=== PATIENT | female | born 1980 | race Caucasian/White ===

== ENCOUNTER 2016-12-22 07:47 | Emergency (ER) | payer SELFPAY ==
--- NOTE | 2016-12-22 08:45 | ER Document Report ---
ED General - General Mode of Arrival: Ambulatory Information source: Patient TRAVEL OUTSIDE OF THE [place] IN LAST 30 DAYS: No - HPI Associated symptoms: Other - see above <MCKENZIE MARTI - Last Filed: 12/22/16 10:20> <USHA HALL - Last Filed: 12/23/16 15:48> - General Chief Complaint: Back Pain Stated Complaint: BACK PAIN/HEADACHE Time Seen by Provider: 12/22/16 08:30 Notes: Patient is a 36 year old female who presents to the ED with complaints of right side back pain for the past few days and a headache that has been persistent the past 14-15 hours. Patient states that she is currently 28 weeks with no care and she is concerned for pre eclampsia. She has taken 1000 mg of Tylenol 2-3 times per day for her back pain, it resolves her back pain but it does come back. She states the medication has not resolved or improved her headache. Patient states her headache feels like pressure and states it could be from her sinuses and congestion as she has allergies and was doing home cleaning last week. She denies any SOB. Patient states she has been having some roseline boyd contractions. She denies any vaginal discharge or bleeding and the baby has been active. She also has had some dysuria. This is patients 4th . She has a 14 year old at home whom she had severe pre eclampsia with, a 4 year old at home and states her 3rd was taken at 28 weeks due to placenta abruption at that child at 1 month old. She states she has not had any pre care for this due to a lapse in her insurance. She does not know her blood type but she is PH negative and has had to have Rhogam shots in the past with her pregnancies. (MCKENZIE MARTI) - Related Data Allergies/Adverse Reactions: No Known Allergies Allergy (Verified 12/22/16 11:49) Past Medical History - General Information source: Patient - Social History Smoking Status: Unknown if Ever Smoked Family History: Reviewed & Not Pertinent Patient has suicidal ideation: No Patient has homicidal ideation: No Renal/ Medical History: Denies: Hx Peritoneal Dialysis <MCKENZIE MARTI - Last Filed: 12/22/16 10:20> Review of Systems - Review of Systems Constitutional: No symptoms reported EENT: No symptoms reported Cardiovascular: No symptoms reported Respiratory: No symptoms reported Gastrointestinal: No symptoms reported Genitourinary: See HPI, Dysuria Female Genitourinary: See HPI, - approximately 28 weeks with no care, baby is active, Other - . denies: Vaginal discharge, Vaginal bleeding Musculoskeletal: See HPI, Back pain Skin: No symptoms reported Hematologic/Lymphatic: No symptoms reported Neurological/Psychological: See HPI, Headaches <MCKENZIE MARTI - Last Filed: 12/22/16 10:20> Physical Exam - General General appearance: Appears well, Alert In distress: None - HEENT Head: Normocephalic, Atraumatic Eyes: Normal Extraocular movements intact: Yes Pupils: PERRL - Respiratory Respiratory status: No respiratory distress Breath sounds: Normal - Cardiovascular Rhythm: Regular Heart sounds: Normal auscultation Murmur: No - Abdominal Inspection: Gravid female Tenderness: Nontender - Back Back: Normal - Extremities General upper extremity: Normal inspection, Normal ROM, Normal strength General lower extremity: Normal inspection, Normal ROM, Normal strength. No: Edema - Neurological Neuro grossly intact: Yes Cognition: Normal Orientation: AAOx4 Pioneer Coma Scale Eye Opening: Spontaneous Wolfgang Coma Scale Verbal: Oriented Pioneer Coma Scale Motor: Obeys Commands Pioneer Coma Scale Total: 15 Speech: Normal Motor strength normal: LUE, RUE, LLE, RLE Sensory: Normal - Psychological Associated symptoms: Normal affect, Normal mood - Skin Skin Temperature: Warm Skin Moisture: Dry Skin Color: Normal <MCKENZIE MARTI - Last Filed: 12/22/16 10:20> - Vital signs Vitals: Temp Pulse Resp BP Pulse Ox 98.4 F 102 H 12 149/105 H 100 12/22/16 07:55 12/22/16 07:55 12/22/16 07:55 12/22/16 07:55 12/22/16 07:55 Course - Laboratory Result Diagrams: 12/22/16 09:08 12/22/16 09:08 - Consults Dr. Castro Time consulted: 10:21 Consulted provider: other <MCKENZIE MARTI - Last Filed: 12/22/16 10:20> - Laboratory Result Diagrams: 12/22/16 09:08 12/22/16 09:08 <USHA HALL - Last Filed: 12/23/16 15:48> - Re-evaluation Re-evalutation: 12/22/16 10:29 Very pleasant 36-year-old presents with mild diffuse headache, right middle back pain. No CVA tenderness. Patient appears nontoxic. She does have a history of prior preeclampsia. Her initial blood pressure was somewhat elevated. She has remained comfortable in the emergency department. A second blood pressure reading showed similar elevation. Her urinalysis shows mild signs of urinary tract infection but also shows the presence of protein. I have called and spoken with Dr. Castro regarding concerns for preeclampsia. He will see the patient in labor and delivery. I discussed this with the patient and she is very pleased and appreciative of the care she has received. (USHA HALL) - Vital Signs Vital signs: Temp Pulse Resp BP Pulse Ox 99.0 F 82 20 135/92 H 100 12/22/16 10:52 12/22/16 10:52 12/22/16 10:52 12/22/16 10:52 12/22/16 10:52 - Laboratory Laboratory results interpreted by me: 12/22/16 12/22/16 12/22/16 09:08 09:08 09:19 WBC 10.7 H RBC 3.54 L Hgb 11.6 L Hct 33.5 L Seg Neutrophils % 80.1 H Lymphocytes % 12.7 L Absolute Neutrophils 8.5 H Chloride 108 H Urine Protein 30 H Urine Blood SMALL H Urine Nitrite POSITIVE H Ur Leukocyte Esterase MODERATE H - Consults Dr. Castro Reason for consultation: 12/22/16 10:21 Discussed patient. He will assess and monitor the patient on the OB floor. ( MCKENZIE MARTI) Discharge <MCKENZIE MARTI - Last Filed: 12/22/16 10:20> - Discharge Unit Admitted: Labor and Delivery <USHA HALL - Last Filed: 12/23/16 15:48> - Discharge Clinical Impression: Hypertension Back pain affecting Qualifiers: Trimester: second trimester Qualified Code(s): O26.892 - Other specified related conditions, second trimester; M54.9 - Dorsalgia, unspecified Preeclampsia Qualifiers: Trimester: second trimester Qualified Code(s): O14.92 - Unspecified pre- eclampsia, second trimester Condition: Stable Disposition: LABOR CHECK Scribe Documentation - Scribe Written by Scribe:: arpit Lackey, 12/22/2016, [id number] acting as scribe for :: Emily <MCKENZIE MARTI - Last Filed: 12/22/16 10:20>
[2016-12-22 09:23] LABS: ABSOLUTE EOSINOPHILS # (AUTO) 0.1 10^3/uL (0.0-0.6); ABSOLUTE LYMPHOCYTES (AUTO) 1.4 10^3/uL (0.5-4.7); ABSOLUTE MONOCYTES (AUTO) 0.7 10^3/uL (0.1-1.4); ABSOLUTE NEUT (AUTO) 8.5 10^3/uL (1.7-8.2); BASOPHILS % (AUTO) 0.3 % (0-2); EOSINOPHILS % (AUTO) 0.5 % (0-6); HEMATOCRIT 33.5 % (36.0-47.0); HEMOGLOBIN 11.6 g/dL (12.0-15.5); HGB HCT DIFFERENCE 1.3; LYMPHOCYTES % (AUTO) 12.7 % (13-45); MEAN CORPUSCULAR HEMOGLOBIN 32.8 pg (27.0-33.4); MEAN CORPUSCULAR HGB CONC 34.7 g/dL (32.0-36.0); MEAN CORPUSCULAR VOLUME 95 fl (80-97); MONOCYTES % (AUTO) 6.4 % (3-13); RED BLOOD COUNT 3.54 10^6/uL (3.72-5.28); RED CELL DISTRIBUTION WIDTH 12.8 % (11.5-14.0); SEGMENTED NEUTROPHILS % (AUTO) 80.1 % (42-78); WHITE BLOOD COUNT 10.7 10^3/uL (4.0-10.5)
[2016-12-22 09:40] LABS: APPEARANCE,URINE CLOUDY; BILIRUBIN,URINE NEGATIVE (NEGATIVE); GLUCOSE, URINE NEGATIVE (NEGATIVE); KETONES,URINE NEGATIVE (NEGATIVE); LEUKOCYTE ESTERASE,URINE MODERATE (NEGATIVE); NITRITE,URINE POSITIVE (NEGATIVE); PROTEIN,URINE 30 mg/dL (NEGATIVE); URINE SPECIFIC GRAVITY 1.008; UROBILINOGEN,URINE NEGATIVE mg/dL (<2.0)
[2016-12-22 09:46] LABS: ALANINE AMINOTRANSFERASE 20 U/L (9-52); ALBUMIN 3.7 g/dL (3.5-5.0); ALKALINE PHOSPHATASE 102 U/L (38-126); ANION GAP 8 (5-19); ASPARTATE AMINO TRANSFERASE 18 U/L (14-36); BILIRUBIN,DIRECT 0.4 mg/dL (0.0-0.4); BILIRUBIN,TOTAL 0.4 mg/dL (0.2-1.3); BLOOD UREA NITROGEN 8 mg/dL (7-20); CALCIUM 9.2 mg/dL (8.4-10.2); CARBON DIOXIDE 22 mmol/L (22-30); CHLORIDE 108 mmol/L (98-107); GLUCOSE 82 mg/dL (75-110); POTASSIUM 3.9 mmol/L (3.6-5.0); SODIUM 138.4 mmol/L (137-145); TOTAL PROTEIN 6.5 g/dL (6.3-8.2)
[2016-12-22] MEDS ORDERED: ACETAMINOPHEN 325 MG TABLET PO ONE (10:57)
[2016-12-22 11:00] VITALS: BP 135/92
== END 2016-12-22 11:19 | disposition admitted as inpatient to this hospital (09) ==
LOC: ER 07:47
DX: O26.892 Other specified pregnancy related conditions, second trimester (principal); O14.92 Unspecified pre-eclampsia, second trimester; I10 Essential (primary) hypertension; M54.9 Dorsalgia, unspecified; Z3A.28 28 weeks gestation of pregnancy; R30.0 Dysuria
CPT/HCPCS: 36415; 80053; 81001; 85025; 99283

== ENCOUNTER 2016-12-22 10:56 | Outpatient (CLI) | payer SELFPAY ==
--- NOTE | 2016-12-22 13:20 | RADIOLOGY REPORT (SQ) ---
EXAM DESCRIPTION: U/S OB LIMITED COMPLETED DATE/TIME: 12/22/2016 12:26 pm REASON FOR STUDY: no [facility] u/s for cervical length, size, dates COMPARISON: None. TECHNIQUE: Limited transabdominal grayscale ultrasound for evaluation of specific requested obstetri earl parameters. LIMITATIONS: None. FINDINGS: CERVICAL LENGTH: 3.1 cm Closed. LVP: 7.2 cm. FHR: 153 beats per minute. PRESENTATION: Cephalic. OTHER: survey shows no gross abnormality. measurements demonstrate a gestational 23 week s 6 days with estimated date of delivery of 04/14/2017. Estimated body weight is 601 g +/-80 9 g. the placenta is posterior grade 1. IMPRESSION: There is a live intrauterine gestation of 23 weeks 6 days with an estimated date of deli very of 04/14/2017. Trimester of : Second trimester - 13 weeks 1 day to 27 weeks 6 days. TECHNICAL DOCUMENTATION: JOB ID: [id number] [employer]- All Rights Reserved
== END 2016-12-22 13:59 | disposition home or self-care (01) ==
LOC: LC 10:56
PROVIDERS: ATTEND Obstetrics & Gynecology
PROC: 4A1HXCZ Monitoring of Products of Conception, Cardiac Rate, External Approach (ICD-10-PCS; principal; 2016-12-22)
DX: O47.02 False labor before 37 completed weeks of gestation, second trimester (principal); O09.32 Supervision of pregnancy with insufficient antenatal care, second trimester; Z3A.23 23 weeks gestation of pregnancy
CPT/HCPCS: 76815

== ENCOUNTER → 2017-01-12 | Outpatient (CLI) | payer SELFPAY ==
[2017-01-12 12:53] LABS: ALANINE AMINOTRANSFERASE 18 U/L (9-52); ALBUMIN 3.2 g/dL (3.5-5.0); ALKALINE PHOSPHATASE 70 U/L (38-126); ANION GAP 9 (5-19); ASPARTATE AMINO TRANSFERASE 13 U/L (14-36); BILIRUBIN,DIRECT 0.3 mg/dL (0.0-0.4); BILIRUBIN,TOTAL 0.4 mg/dL (0.2-1.3); BLOOD UREA NITROGEN 6 mg/dL (7-20); CALCIUM 8.6 mg/dL (8.4-10.2); CARBON DIOXIDE 21 mmol/L (22-30); CHLORIDE 108 mmol/L (98-107); CREATININE RESULT 0.61 mg/dL (0.52-1.25); GLUCOSE 73 mg/dL (75-110); LDH 304 U/L (313-618); POTASSIUM 4.2 mmol/L (3.6-5.0); SODIUM 137.9 mmol/L (137-145); TOTAL PROTEIN 5.9 g/dL (6.3-8.2); URIC ACID 4.8 mg/dL (2.5-7.0)
[2017-01-13 19:00] LABS: URINE PROTEIN 21.4 mg/dL (<12)
== END ==
LOC: OCH 11:12
PROVIDERS: ATTEND Nurse Practitioner Women's Health
DX: Z34.83 Encounter for supervision of other normal pregnancy, third trimester (principal)
CPT/HCPCS: 36415; 80053; 83615; 84156; 84550

== ENCOUNTER → 2017-01-23 | Outpatient (CLI) | payer SELFPAY ==
--- NOTE | 2017-01-23 15:34 | RADIOLOGY REPORT (SQ) ---
EXAM DESCRIPTION: U/S OB 14+ TRNABD 1GES W/O DOP COMPLETED DATE/TIME: 01/23/2017 1:38 pm REASON FOR STUDY: ENCOUNTER FOR SUPERVISION OF OTHER NORMAL , 2ND TRIMESTER (Z34.82) Z34.82 ENCOUNTER FOR SUPRVSN OF NORMAL , SECOND TRI COMPARISON: 12/22/2016 TECHNIQUE: Static and Dynamic grayscale imaging performed of gravid uterus using transabdominal appr oach. Additional selected color Doppler and spectral images recorded. All stored on PACS. LIMITATIONS: None. FINDINGS: EGA: 29 weeks 0 days. JOSE: 04/10/2017. EFW: 1,315 +/- 195 grams PERCENTILE: 55 GODWIN: 19.4 cm PLACENTA: Posterior PRESENTATION: Cephalic. ANATOMY: HEART RATE: 147 beats per minute. FOUR CHAMBER HEART: Visualized. THREE VESSEL CORD: Yes. CORD INSERTION: Visualized. KIDNEYS AND BLADDER: Visualized. Appear normal. STOMACH: Visualized. Appears normal. SPINE: Normal as visualized. BRAIN AND LATERAL VENTRICLES: Visualized. Appear normal. OTHER: No other significant finding. MATERNAL ADNEXA: Maternal ovaries not visualized. CERVICAL LENGTH: 3.6 cm Closed. OTHER: No other significant finding. CERVICAL LENGTH: 3.1 cm Closed. GODWIN: Normal. FHR: 153 beats per minute. PRESENTATION: Cephalic. OTHER: Estimate gestational age by today's ultrasound is 23 weeks 6 days. Estimated weight is 1315 g +/ -195 g which is at the 55 percentile. IMPRESSION: LIVING INTRAUTERINE . ESTIMATED GESTATIONAL AGE 29 WEEKS 0 DAYS NO VISUALIZED ANOMALIES. Trimester of : Third trimester - 28 weeks to delivery. TECHNICAL DOCUMENTATION: JOB ID: [id number] [employer]- All Rights Reserved
== END ==
LOC: RAD 12:45
PROVIDERS: ATTEND Nurse Practitioner Women's Health
DX: Z34.82 Encounter for supervision of other normal pregnancy, second trimester (principal)
CPT/HCPCS: 76805

== ENCOUNTER 2017-02-13 10:20 | Outpatient (CLI) | payer MEDICAID ==
[2017-02-13 11:08] LABS: APPEARANCE,URINE SLIGHTLY-CLOUDY; BILIRUBIN,URINE NEGATIVE (NEGATIVE); GLUCOSE, URINE NEGATIVE (NEGATIVE); KETONES,URINE NEGATIVE (NEGATIVE); LEUKOCYTE ESTERASE,URINE LARGE (NEGATIVE); NITRITE,URINE POSITIVE (NEGATIVE); PROTEIN,URINE NEGATIVE (NEGATIVE); URINE SPECIFIC GRAVITY 1.006; UROBILINOGEN,URINE NEGATIVE mg/dL (<2.0)
[2017-02-13 11:18] LABS: HEMATOCRIT 31.4 % (36.0-47.0); HEMOGLOBIN 11.1 g/dL (12.0-15.5); HGB HCT DIFFERENCE 1.9; MEAN CORPUSCULAR HEMOGLOBIN 32.9 pg (27.0-33.4); MEAN CORPUSCULAR HGB CONC 35.3 g/dL (32.0-36.0); MEAN CORPUSCULAR VOLUME 93 fl (80-97); RED BLOOD COUNT 3.37 10^6/uL (3.72-5.28); WHITE BLOOD COUNT 11.5 10^3/uL (4.0-10.5)
[2017-02-13 11:26] LABS: URINE BARBITURATES SCREEN NEGATIVE; URINE METHADONE SCREEN NEGATIVE; URINE OPIATES LOW NEGATIVE; URINE PHENCYCLIDINE SCREEN NEGATIVE
[2017-02-13 11:37] LABS: ALANINE AMINOTRANSFERASE 23 U/L (9-52); ALBUMIN 3.7 g/dL (3.5-5.0); ALKALINE PHOSPHATASE 94 U/L (38-126); ANION GAP 10 (5-19); ASPARTATE AMINO TRANSFERASE 16 U/L (14-36); BILIRUBIN,DIRECT 0.3 mg/dL (0.0-0.4); BILIRUBIN,TOTAL 0.4 mg/dL (0.2-1.3); BLOOD UREA NITROGEN 7 mg/dL (7-20); CALCIUM 8.7 mg/dL (8.4-10.2); CARBON DIOXIDE 23 mmol/L (22-30); CHLORIDE 106 mmol/L (98-107); CREATININE RESULT 0.66 mg/dL (0.52-1.25); GLUCOSE 77 mg/dL (75-110); LDH 374 U/L (313-618); POTASSIUM 3.9 mmol/L (3.6-5.0); SODIUM 139.2 mmol/L (137-145); TOTAL PROTEIN 6.5 g/dL (6.3-8.2); URIC ACID 5.1 mg/dL (2.5-7.0)
== END 2017-02-13 11:56 | disposition home or self-care (01) ==
LOC: LC 10:20
PROVIDERS: ATTEND Obstetrics & Gynecology
DX: O16.9 Unspecified maternal hypertension, unspecified trimester (principal); Z3A.00 Weeks of gestation of pregnancy not specified
CPT/HCPCS: 36415; 80053; 80307; 81001; 83615; 84550; 85027

== ENCOUNTER 2017-03-01 10:31 | Outpatient (CLI) | payer MEDICAID | END 2017-03-01 11:20 | disposition home or self-care (01) | LOC: LC 10:31 | PROVIDERS: ATTEND Obstetrics & Gynecology | PROC: 4A1HXCZ Monitoring of Products of Conception, Cardiac Rate, External Approach (ICD-10-PCS; principal; 2017-03-01) | DX: Z34.92 Encounter for supervision of normal pregnancy, unspecified, second trimester (principal); Z3A.33 33 weeks gestation of pregnancy | CPT/HCPCS: 59025 ==

== ENCOUNTER → 2017-03-06 | Outpatient (CLI) | payer MEDICAID ==
[2017-03-06 12:55] LABS: HEMATOCRIT 29.6 % (36.0-47.0); HEMOGLOBIN 10.6 g/dL (12.0-15.5); HGB HCT DIFFERENCE 2.2; MEAN CORPUSCULAR HGB CONC 35.6 g/dL (32.0-36.0); MEAN CORPUSCULAR VOLUME 93 fl (80-97); RED CELL DISTRIBUTION WIDTH 12.8 % (11.5-14.0); WHITE BLOOD COUNT 10.8 10^3/uL (4.0-10.5)
[2017-03-06 13:17] LABS: ASPARTATE AMINO TRANSFERASE 17 U/L (14-36); CREATININE RESULT 0.68 mg/dL (0.52-1.25); LDH 343 U/L (313-618); URIC ACID 5.6 mg/dL (2.5-7.0)
== END ==
LOC: OD 12:02
PROVIDERS: ATTEND Obstetrics & Gynecology
DX: O11.3 Pre-existing hypertension with pre-eclampsia, third trimester (principal); Z3A.34 34 weeks gestation of pregnancy
CPT/HCPCS: 36415; 82565; 83615; 84450; 84550; 85027

== ENCOUNTER 2017-03-14 21:07 | Observation (INO) | payer MEDICAID ==
[2017-03-14 21:39] LABS: APPEARANCE,URINE CLEAR; BILIRUBIN,URINE NEGATIVE (NEGATIVE); GLUCOSE, URINE NEGATIVE (NEGATIVE); KETONES,URINE NEGATIVE (NEGATIVE); LEUKOCYTE ESTERASE,URINE TRACE (NEGATIVE); NITRITE,URINE NEGATIVE (NEGATIVE); PROTEIN,URINE NEGATIVE (NEGATIVE); URINE SPECIFIC GRAVITY 1.002; UROBILINOGEN,URINE NEGATIVE mg/dL (<2.0)
[2017-03-14] MEDS ORDERED: RINGERS SOLUTION,LACTATED 300 ML IV ONE (21:45)
[2017-03-14] MEDS ORDERED: RINGERS SOLUTION,LACTATED 1,000 ML IV PRN (21:45)
[2017-03-14 21:57] LABS: URINE BARBITURATES SCREEN NEGATIVE; URINE METHADONE SCREEN NEGATIVE; URINE OPIATES LOW NEGATIVE; URINE PHENCYCLIDINE SCREEN NEGATIVE
[2017-03-14] MEDS ORDERED: ACETAMINOPHEN 325 MG TABLET PO ONE (23:12)
[2017-03-14] MEDS ORDERED: ACETAMINOPHEN 325 MG TABLET ONE (23:13)
[2017-03-15] MEDS ORDERED: PROMETHAZINE HCL INJ 25 MG/1 ML VIAL IV ONE (00:41)
[2017-03-15] MEDS ORDERED: MAG HYDROX/AL HYDROX/SIMETH SUSP 30 ML UDCUP PO ONE (00:41)
[2017-03-15] MEDS ORDERED: NALBUPHINE HCL INJ 10 MG/1 ML AMPULE INJ ONE (00:41)
[2017-03-15 00:54] LABS: ABSOLUTE EOSINOPHILS # (AUTO) 0.1 10^3/uL (0.0-0.6); ABSOLUTE LYMPHOCYTES (AUTO) 2.2 10^3/uL (0.5-4.7); ABSOLUTE MONOCYTES (AUTO) 0.9 10^3/uL (0.1-1.4); ABSOLUTE NEUT (AUTO) 9.2 10^3/uL (1.7-8.2); BASOPHILS % (AUTO) 0.1 % (0-2); EOSINOPHILS % (AUTO) 0.5 % (0-6); HEMATOCRIT 28.7 % (36.0-47.0); HEMOGLOBIN 10.2 g/dL (12.0-15.5); HGB HCT DIFFERENCE 1.9; LYMPHOCYTES % (AUTO) 17.5 % (13-45); MEAN CORPUSCULAR HEMOGLOBIN 33.1 pg (27.0-33.4); MEAN CORPUSCULAR HGB CONC 35.4 g/dL (32.0-36.0); MEAN CORPUSCULAR VOLUME 93 fl (80-97); MONOCYTES % (AUTO) 7.2 % (3-13); RED BLOOD COUNT 3.07 10^6/uL (3.72-5.28); RED CELL DISTRIBUTION WIDTH 13.1 % (11.5-14.0); SEGMENTED NEUTROPHILS % (AUTO) 74.7 % (42-78); WHITE BLOOD COUNT 12.4 10^3/uL (4.0-10.5)
[2017-03-15] MEDS ORDERED: MAG HYDROX/AL HYDROX/SIMETH SUSP 30 ML UDCUP ONE (01:00)
[2017-03-15] MEDS ORDERED: PROMETHAZINE HCL INJ 25 MG/1 ML VIAL ONE (02:16)
[2017-03-15] MEDS ORDERED: NALBUPHINE HCL INJ 10 MG/1 ML AMPULE ONE (02:16)
--- NOTE | 2017-03-15 08:13 | DISCHARGE SUMMARY E ---
Discharge Summary NAME: VIANNEY MONROE : 1980 AGE: 36Y ADMITTED: 03/15/2017 DISCHARGED: 03/15/2017 DISCHARGE DIAGNOSIS: NOT IN LABOR. HISTORY: The patient presented with contractions during the evening and was observed overnight to ensure that she was not in labor since she had several previous C-sections. She is 6, para 3. This is the furtherest she has made in , now at 35-1/2 weeks. On exam, her cervix was 2.5 cm to 3 cm dilated, 50%, minus 2 station, with intact membranes. Through the night, after IV fluids, her contractions have now stopped. She is no longer in pain. She is ready to go home this morning. PLAN: Discharge home. Follow up in the office at her usual OB visit. She will need a if she does present in labor. DICTATING PHYSICIAN: CHANDAN ALEXANDER M.D. [id number] PHY#: [id number] ID: [id number] JOB#: [id number] ACCT: [id number] cc:CHANDAN ALEXANDER M.D. >
--- NOTE | 2017-03-15 09:56 | Non Stress Test Report ---
Non Stress Test Datetime Report Generated by CPN: 03/15/2017 09:56 DEMOGRAPHIC EGA NST: 35.5 EGA NST: 33.5 INDICATION Indication for Study: labor; Ordered by Provider Indication for Study: Ordered by Provider VITAL SIGNS Temperature - NST: 98.4 Pulse - NST: 74 RESP - NST: 16 NBPSYS NST: 128 NBPDIA NST: 84 MONITORING Monitor Explained: Monitor Explained; Test Explained; Patient Verbalized Understanding Monitor Explained: Monitor Explained; Test Explained; Patient Verbalized Understanding Time on Monitor: 03/15/2017 07:00 Time on Monitor: 03/01/2017 10:40 Time off Monitor: 03/15/2017 07:45 NST Duration: 45 NST INTERVENTIONS NST Interventions: PO Hydration; IV Fluids; Meal Given NST Interventions: PO Hydration; Vibroacoustic Stim Physician Notified NST: Dr Brunner Physician Notified NST: H Carl CNM BABY A: [id number] BABY A Movement : Present Movement : Present Contraction Frequency : irregular Contraction Frequency : rare FHR Baseline : 135 FHR Baseline : 135 Accelerations : 15X15 Accelerations : 15X15 Decelerations : None Decelerations : None Variability : Moderate 6-25bpm Variability : Moderate 6-25bpm NST Review: Meets Criteria for Reactive NST NST Review: Meets Criteria for Reactive NST NST Review and Verified By : Jamison White RN NST Results: Reactive NST Results: Reactive NST REPORT Report Trigger: Send Report
== END 2017-03-15 09:20 | disposition home or self-care (01) ==
LOC: LC 21:07 → LR 03-15 00:01
PROVIDERS: ADMIT Obstetrics & Gynecology; ATTEND Obstetrics & Gynecology
PROC: 4A0HXCZ Measurement of Products of Conception, Cardiac Rate, External Approach (ICD-10-PCS; principal; 2017-03-15)
DX: O60.03 Preterm labor without delivery, third trimester (principal); O34.219 Maternal care for unspecified type scar from previous cesarean delivery; Z3A.35 35 weeks gestation of pregnancy
CPT/HCPCS: 86900; 86901; 36415; 86870; 86850; 85025; 86592; 81001; 80307; 59025; G0378; J3490 ×2; J2300; J2550

== ENCOUNTER 2017-03-24 06:22 | Inpatient (IN) | payer MEDICAID ==
[2017-03-23 10:33] LABS: ABSOLUTE EOSINOPHILS # (AUTO) 0.1 10^3/uL (0.0-0.6); ABSOLUTE LYMPHOCYTES (AUTO) 1.6 10^3/uL (0.5-4.7); ABSOLUTE NEUT (AUTO) 9.2 10^3/uL (1.7-8.2); BASOPHILS % (AUTO) 0.2 % (0-2); EOSINOPHILS % (AUTO) 0.6 % (0-6); HEMATOCRIT 32.2 % (36.0-47.0); HEMOGLOBIN 10.9 g/dL (12.0-15.5); HGB HCT DIFFERENCE 0.5; LYMPHOCYTES % (AUTO) 13.1 % (13-45); MEAN CORPUSCULAR HGB CONC 33.9 g/dL (32.0-36.0); MEAN CORPUSCULAR VOLUME 94 fl (80-97); MONOCYTES % (AUTO) 8.6 % (3-13); RED BLOOD COUNT 3.41 10^6/uL (3.72-5.28); RED CELL DISTRIBUTION WIDTH 13.2 % (11.5-14.0); SEGMENTED NEUTROPHILS % (AUTO) 77.5 % (42-78); WHITE BLOOD COUNT 11.8 10^3/uL (4.0-10.5)
[2017-03-23 10:34] LABS: APPEARANCE,URINE SLIGHTLY-CLOUDY; BILIRUBIN,URINE NEGATIVE (NEGATIVE); GLUCOSE, URINE NEGATIVE (NEGATIVE); KETONES,URINE NEGATIVE (NEGATIVE); LEUKOCYTE ESTERASE,URINE LARGE (NEGATIVE); NITRITE,URINE NEGATIVE (NEGATIVE); PROTEIN,URINE NEGATIVE (NEGATIVE); URINE SPECIFIC GRAVITY 1.004; UROBILINOGEN,URINE NEGATIVE mg/dL (<2.0)
[2017-03-23 10:55] LABS: URINE BARBITURATES SCREEN NEGATIVE; URINE METHADONE SCREEN NEGATIVE; URINE OPIATES LOW NEGATIVE; URINE PHENCYCLIDINE SCREEN NEGATIVE
[~2017-03-24 06:22] MED LIST: AZITHROMYCIN 500 MG in DEXTROSE 5%-WATER 250 ML IV PRN; CEFAZOLIN 1 GM/D5W RTU 1 GM/50 ML RTUPB IV PRN; LACTATED RINGERS 1000 ML IV PRN; LIDOCAINE 0.5% INJ-PF (5 MG/ML) 50 ML SDV SUBCUT PRN; RINGERS SOLUTION,LACTATED 1,000 ML IV PRN
[2017-03-24] MEDS ORDERED: ACETAMINOPHEN 100 ML IV ONE (08:16)
[2017-03-24] MEDS ORDERED: MIDAZOLAM 2 MG/2 ML INJ ONE (08:16)
[2017-03-24] MEDS ORDERED: CITRIC ACID/SODIUM CITRATE ORAL SOLN 15 ML UDCUP ONE (08:16)
[2017-03-24] MEDS ORDERED: OXYTOCIN/NORMAL SALINE 20 UNIT/1,000 ML RTUINJ ONE (08:16)
[2017-03-24] MEDS ORDERED: FENTANYL CITRATE INJ/PF 100 MCG/2 ML AMPUL ONE (08:16)
[2017-03-24] MEDS ORDERED: ONDANSETRON HCL INJ/PF 4 MG/2 ML SDV ONE (08:17)
[2017-03-24] MEDS ORDERED: PHENYLEPHRINE HCL INJ/PF 10 MG/1 ML SDV ONE (08:17)
[2017-03-24] MEDS ORDERED: DIPHENHYDRAMINE HCL 50 MG/ML VIAL IV PRN (09:26)
[2017-03-24] MEDS ORDERED: PROMETHAZINE HCL INJ 25 MG/1 ML VIAL IV PRN (09:26)
[2017-03-24] MEDS ORDERED: FENTANYL CITRATE INJ/PF 100 MCG/2 ML AMPUL IV PRN ×3 (09:26)
[2017-03-24] MEDS ORDERED: MORPHINE SULFATE 10 MG/ML INJ IV PRN (09:26)
[2017-03-24] MEDS ORDERED: OXYTOCIN/NORMAL SALINE 20 UNIT/1,000 ML RTUINJ INJ PRN (10:07)
--- NOTE | 2017-03-24 10:28 | OPERATIVE REPORT E ---
Operative Report NAME: VIANNEY MONROE : 1980 AGE: 36Y DATE OF SURGERY: 03/24/2017 ROOM: 228 PREOPERATIVE DIAGNOSES: 1. Intrauterine at term with prior section. 2. Desire for sterilization. POSTOPERATIVE DIAGNOSES: 1. Intrauterine at term with prior section. 2. Desire for sterilization. PROCEDURE: Repeat low transverse section with delivery of a viable male, Apgars of 8 and 8. SURGEON: Holley ANDRADE M.D. ESTIMATED BLOOD LOSS: Less than 600 mL. TISSUE REMOVED: Placenta. ANESTHESIA: Spinal. PROCEDURE: The patient was placed in a supine position, rolled on her right side, and prepped and draped in a sterile fashion. Pfannenstiel incision was made through an existing Pfannenstiel eschar. The incision extended through subcutaneous tissue and fascia with sharp dissection. Fascia resected and sharply divided. The rectus muscle resected and sharply divided. Parietal peritoneum entered with sharp dissection. The uterus nicked in midline and extended bilaterally. The was then delivered through the uterine-abdominal incision. Nose and mouth were suctioned with bulb syringe. The cord was clamped. The was passed from the table. The placenta was manually extracted. The uterus was closed in 2 layers using #1 Vicryl, first with a running stitch, the second a Lembert stitch imbricating the first layer. The tubes were ligated using Filshie clips in with a good purchase of tissue being noted on both sides. The tubes were identified prior *------* the fimbria prior to and after banding. The fascia was then closed with 0 Vicryl and the skin was closed with subcuticular absorbable kalpana. She tolerated it well and was taken to the recovery room in good condition and the to the nursery in good condition. DICTATING PHYSICIAN: Holley ANDRADE M.D. [id number] PHY#: [id number] ID: [id number] JOB#: [id number] ACCT: [id number] cc:Holley ANDRADE M.D. >
[2017-03-24] MEDS ORDERED: ACETAMINOPHEN 325 MG TABLET PO PRN (10:30)
[2017-03-24] MEDS ORDERED: SIMETHICONE 80 MG TAB.CHEW PO PRN (10:30)
[2017-03-24] MEDS ORDERED: DIPH/PERTUSS(ACELL)/TETANUS VAC/PF 0.5 ML SYR (>=10YO) IM PRN (10:30)
[2017-03-24] MEDS ORDERED: MEASLES,MUMPS&RUBELLA VACC/PF 0.5 ML VIAL SUBCUT PRN (10:30)
[2017-03-24] MEDS ORDERED: OXYCODONE-ACETAMINOPHEN 5-325 MG TABLET PO PRN (10:30)
[2017-03-24] MEDS ORDERED: PROMETHAZINE HCL INJ 25 MG/1 ML VIAL IM PRN (10:30)
[2017-03-24] MEDS: FENTANYL CITRATE INJ/PF 100 MCG/2 ML AMPUL ONE ×2 (11:06→11:08)
[2017-03-24] MEDS ORDERED: KETOROLAC TROMETHAMINE INJ/PF 30 MG/1 ML SDV ONE (11:06)
[2017-03-24] MEDS: HYDROMORPHONE HCL INJ/PF 2 MG/ML AMPULE IV PRN ×2 (12:12→17:23)
[2017-03-24] MEDS: KETOROLAC TROMETHAMINE INJ/PF 30 MG/1 ML SDV IV SCH ×2 (14:20→21:25)
[2017-03-24] MEDS: OXYCODONE-ACETAMINOPHEN 5-325 MG TABLET PO PRN ×2 (14:39→20:06)
[2017-03-24] MEDS ORDERED: LABETALOL HCL 200 MG TABLET PO ONE (15:00)
[2017-03-24] MEDS: ACETAMINOPHEN 100 ML IV SCH ×2 (15:10→21:40)
[2017-03-24] MEDS: DOCUSATE SODIUM 100 MG CAPSULE PO SCH (17:23)
[2017-03-24] MEDS ORDERED: ONDANSETRON HCL 8 MG TABLET PO PRN (18:33)
[2017-03-24] MEDS: LABETALOL HCL 200 MG TABLET PO SCH (21:31)
[2017-03-25] MEDS: OXYCODONE-ACETAMINOPHEN 5-325 MG TABLET PO PRN ×5 (00:18→18:34)
[2017-03-25] MEDS: ACETAMINOPHEN 100 ML IV SCH (05:54)
[2017-03-25] MEDS: KETOROLAC TROMETHAMINE INJ/PF 30 MG/1 ML SDV IV SCH ×2 (05:54→05:56)
[2017-03-25] MEDS: LABETALOL HCL 200 MG TABLET PO SCH ×2 (09:48→22:17)
[2017-03-25] MEDS: DOCUSATE SODIUM 100 MG CAPSULE PO SCH ×2 (09:48→18:35)
[2017-03-25] MEDS: PRENATAL VITAMIN W DHA CAPSULE PO SCH (09:49)
--- NOTE | 2017-03-25 10:33 | PDOC PROGRESS REPORT ---
Subjective-OB Subjective: Post Delivery Day: 36 year old. Denies any needs at this time s/p repeat c section with btl abdomen soft mildly tender no redness incision dry and intact denies flatus, no bowel movement increase fluid and ambulation pain currently managed reviewed poc with pt and spouse- learning verbalized anticipate d/c in AM Physical Exam (OB) Vital Signs: Temp Pulse Resp BP Pulse Ox 98.2 F 81 16 130/90 H 100 03/25/17 09:02 03/25/17 09:02 03/25/17 09:02 03/25/17 09:02 03/25/17 09:02 Intake & Output 03/24/17 03/25/17 03/26/17 06:59 06:59 06:59 Intake Total 3000 Output Total 2650 Balance 350 Weight 61 kg 61 kg - PIH/Pre-Eclampsia DTR's: 2 + Clonus: Negative Headache: Absent Epigastric Pain: No Visual Changes: No - Dressing Removed: No - medipore Incision: Dressing - Lochia Lochia Amount: Small 10-25 ml Lochia Color: Rubra/Red - Abdomen Description: Soft, Round Hernia Present: No Fundal Description: Firm, Midline Fundal Height: u/u - u/2 Objective-Diagnostic Laboratory: 03/23/17 09:25
[2017-03-25] MEDS: IBUPROFEN 800 MG TABLET PO SCH ×3 (12:10→23:22)
[2017-03-25 12:34] LABS: HEMATOCRIT 25.3 % (36.0-47.0); HGB HCT DIFFERENCE 1.1; MEAN CORPUSCULAR HEMOGLOBIN 32.9 pg (27.0-33.4); MEAN CORPUSCULAR HGB CONC 34.8 g/dL (32.0-36.0); MEAN CORPUSCULAR VOLUME 95 fl (80-97); RED BLOOD COUNT 2.67 10^6/uL (3.72-5.28); RED CELL DISTRIBUTION WIDTH 13.4 % (11.5-14.0)
[2017-03-25 12:41] LABS: HEMOGLOBIN 8.8 g/dL (12.0-15.5)
[2017-03-26] MEDS: OXYCODONE-ACETAMINOPHEN 5-325 MG TABLET PO PRN ×2 (00:16→05:50)
[2017-03-26] MEDS: IBUPROFEN 800 MG TABLET PO SCH (05:49)
--- NOTE | 2017-03-26 08:12 | PDOC DISCHARGE SUMMARY ---
General - Admit/Disc Date/PCP Admission Date/Primary Care Provider: 03/24/17 06:22 CHANDAN ALEXANDER MD Discharge Date: 03/26/17 - Discharge Diagnosis (3) Gestational hypertension Is this a current diagnosis for this admission?: Yes - Additional Information Resuscitation Status: Full Code Home Medications: Pnv No.103/Folic/Om3s/Fish Oil [ Gummies] 1 each PO DAILY 12/22/16 Bupropion HCl [Wellbutrin 75 mg Tablet] 1 tab PO DAILY 02/13/17 Labetalol HCl 300 mg PO BID 02/13/17 Ranitidine HCl [Acid Preflight Inspector] 75 mg PO BID 03/14/17 History of Present Illness History of Present Illness: VIANNEY MONROE is a 36 year old female admitted for repeat and btl Hospital Course Hospital Course: repeat and btl routine care Physical Exam - Physical Exam Vital Signs: Temp Pulse Resp BP Pulse Ox 98.4 F 72 16 127/76 H 99 03/26/17 03:50 03/26/17 03:50 03/26/17 03:50 03/26/17 03:50 03/26/17 03:50 Intake & Output 03/25/17 03/26/17 03/27/17 06:59 06:59 06:59 Intake Total 3000 540 Output Total 2650 Balance 350 540 Weight 61 kg - Obstetrical Exam Fundal Height: u/u - u/2 Tender: No Adhexa: normal Result Laboratory Results: 03/25/17 07:33 03/25/17 03/25/17 07:33 07:33 WBC 12.0 H RBC 2.67 L Hgb 8.8 L D Hct 25.3 L MCV 95 MCH 32.9 MCHC 34.8 RDW 13.4 Plt Count 262 Blood Type A NEGATIVE Plan Discharge Plan: d/c home stop meds for HTN f/u 1 week Time Spent: Less than 30 Minutes
[2017-03-26 09:03] VITALS: BP 136/93
[2017-03-26] MEDS: DOCUSATE SODIUM 100 MG CAPSULE PO SCH (09:19)
[2017-03-26] MEDS: LABETALOL HCL 200 MG TABLET PO SCH (09:19)
[2017-03-26] MEDS: PRENATAL VITAMIN W DHA CAPSULE PO SCH (09:19)
== END 2017-03-26 10:45 | disposition home or self-care (01) | DRG 766 ==
LOC: 2S 06:22
PROVIDERS: ADMIT Obstetrics & Gynecology Gynecology; ATTEND Obstetrics & Gynecology Gynecology
PROC: 0UL70CZ Occlusion of Bilateral Fallopian Tubes with Extraluminal Device, Open Approach (ICD-10-PCS; 2017-03-24)
PROC: 10D00Z1 Extraction of Products of Conception, Low, Open Approach (ICD-10-PCS; principal; 2017-03-24 09:15)
PROC: 3E0234Z Introduction of Serum, Toxoid and Vaccine into Muscle, Percutaneous Approach (ICD-10-PCS; 2017-03-25)
DX: O13.4 Gestational [pregnancy-induced] hypertension without significant proteinuria, complicating childbirth (principal); Z3A.37 37 weeks gestation of pregnancy; Z37.0 Single live birth; Z30.2 Encounter for sterilization; O26.893 Other specified pregnancy related conditions, third trimester; Z67.11 Type A blood, Rh negative; O34.212 Maternal care for vertical scar from previous cesarean delivery; Z79.899 Other long term (current) drug therapy
CPT/HCPCS: 1961; 36415; 59025; 80307; 81001; 85025; 85027; 85461; 86850; 86870; 86900; 86901; J0131; J0456; J0690; J1170; J1885; J2250; J2370; J2405; J2590; J2790; J3010; J3490; J7060; J7120; S0119

== ENCOUNTER 2017-03-26 21:45 | Emergency (ER) | payer MEDICAID ==
--- NOTE | 2017-03-26 22:01 | ER Document Report ---
ED General - General Stated Complaint: BLOOD PRESSURE PROBLEMS Time Seen by Provider: 03/26/17 21:49 Notes: Patient is a 36-year-old female 2 days from delivery who presents after "getting a chill". Patient states that she was lying in bed tonight and suddenly became very cold. She states that the symptoms have now resolved. She denies any additional symptoms. She does note that her blood pressure has been high but had been instructed to discontinue labetalol at time of discharge today after being diagnosed with hypertension during versus possible preeclampsia. She denies any chest pain, shortness of breath, headache, syncope, weakness or numbness. Nothing improves or worsens her symptoms. She denies any fever, vaginal discharge, bleeding or drainage from the wound TRAVEL OUTSIDE OF THE [place] IN LAST 30 DAYS: No - Related Data Allergies/Adverse Reactions: No Known Allergies Allergy (Verified 03/14/17 22:41) Past Medical History - General Information source: Patient - Social History Smoking Status: Never Smoker Frequency of alcohol use: None Drug Abuse: None Lives with: Spouse/Significant other Family History: Reviewed & Not Pertinent - Past Medical History Cardiac Medical History: Reports: Hx Heart Murmur Renal/ Medical History: Denies: Hx Peritoneal Dialysis Review of Systems - Review of Systems Notes: Constitutional: Negative for fever. HENT: Negative for sore throat. Eyes: Negative for visual changes. Cardiovascular: Negative for chest pain. Respiratory: Negative for shortness of breath. Gastrointestinal: Negative for abdominal pain, vomiting or diarrhea. Genitourinary: Negative for dysuria. Musculoskeletal: Negative for back pain. Skin: Negative for rash. Neurological: Negative for headaches, weakness or numbness. 10 point ROS negative except as marked above and in HPI. Physical Exam - Vital signs Vitals: Resp Pulse Ox 11 L 99 03/26/17 21:56 03/26/17 21:56 Interpretation: Hypertensive Notes: PHYSICAL EXAMINATION: GENERAL: Well-appearing, well-nourished and in no acute distress. HEAD: Atraumatic, normocephalic. EYES: Pupils equal round and reactive to light, extraocular movements intact, sclera anicteric, conjunctiva are normal. ENT: nares patent, oropharynx clear without exudates. Moist mucous membranes. NECK: Normal range of motion, supple without lymphadenopathy LUNGS: Breath sounds clear to auscultation bilaterally and equal. No wheezes rales or rhonchi. HEART: Regular rate and rhythm without murmurs ABDOMEN: Soft, uterus firm, mildly tender to palpation. EXTREMITIES: Normal range of motion, no pitting or edema. No cyanosis. NEUROLOGICAL: No focal neurological deficits. Moves all extremities spontaneously and on command. PSYCH: Normal mood, normal affect. SKIN: Warm, Dry, normal turgor, abdominal incision line well-healing, no drainage or bleeding Course - Re-evaluation Re-evalutation: 03/26/17 22:00 Patient presents feeling "chilled" but denies any additional symptoms after being discharged from the hospital 10 hours ago 2 days from a C- section. She did have preeclampsia during but apparently was informed by her OB today to discontinue labetalol and has not taken her nighttime dose. Her pressures in route were elevated 168 systolic and 110 diastolic. I have asked the patient to take a dose of labetalol 100 mg now and continue this medication at home. Will obtain basic laboratories to evaluate for help syndrome as well as ongoing preeclampsia but I have a very low clinical suspicion for any acute life-threatening pathology at this time based on patient's well appearance, vitals and history. Her incisional site is very well in appearance, no evidence of infection. She denies any foul- smelling lochia. She has no additional symptoms other than feeling chilled. She did not have any additional vital sign abnormalities other than hypertension at time of EMS transport. 03/26/17 22:41 Hemoglobin is improved from time of discharge. Labs are otherwise unremarkable without any evidence of HELLP syndrome. Protein is negative. Blood pressure improved after labetalol. Patient remains asymptomatic. At this time will discharge with return precautions and follow-up recommendations. Verbal discharge instructions given a the bedside and opportunity for questions given. Medication warnings reviewed. Patient is in agreement with this plan and has verbalized understanding of return precautions and the need for BED TEACHER follow- up in the next 24-72 hours. - Vital Signs Vital signs: Temp Pulse Resp BP Pulse Ox 98.7 F 13 147/106 H 99 03/26/17 22:30 03/26/17 22:30 12 22:30 03/26/17 22:30 - Laboratory Result Diagrams: 03/26/17 21:52 12/10/17 21:52 Laboratory results interpreted by me: 03/26/17 03/26/17 03/26/17 21:52 21:52 21:58 RBC 3.06 L Hgb 10.3 L Hct 29.0 L MCH 33.5 H Total Protein 6.0 L Albumin 3.3 L Urine Blood LARGE H Ur Leukocyte Esterase SMALL H Discharge - Discharge Clinical Impression: Chills Hypertension during Qualifiers: Hypertension in type: unspecified type Trimester: unspecified trimester Qualified Code(s): O16.9 - Unspecified maternal hypertension, unspecified trimester Condition: Good Disposition: HOME, SELF-CARE Additional Instructions: Blood work is normal today with the exception of mild anemia which is actually improved from your time of discharge. Please continue to take labetalol 100 mg twice daily until you are followed up again with your BED TEACHER. Return to the emergency department for any additional symptoms that are concerning to you including headache, vomiting, fever, or any other concerns you may have. Referrals: KEVAN ANDRADE MD [Primary Care Provider] - Follow up as needed
[2017-03-26 22:21] LABS: ABSOLUTE EOSINOPHILS # (AUTO) 0.1 10^3/uL (0.0-0.6); ABSOLUTE LYMPHOCYTES (AUTO) 1.9 10^3/uL (0.5-4.7); ABSOLUTE MONOCYTES (AUTO) 0.8 10^3/uL (0.1-1.4); ABSOLUTE NEUT (AUTO) 6.6 10^3/uL (1.7-8.2); BASOPHILS % (AUTO) 0.2 % (0-2); EOSINOPHILS % (AUTO) 1.3 % (0-6); HEMOGLOBIN 10.3 g/dL (12.0-15.5); HGB HCT DIFFERENCE 1.9; LYMPHOCYTES % (AUTO) 20.1 % (13-45); MEAN CORPUSCULAR HEMOGLOBIN 33.5 pg (27.0-33.4); MEAN CORPUSCULAR HGB CONC 35.4 g/dL (32.0-36.0); MEAN CORPUSCULAR VOLUME 95 fl (80-97); MONOCYTES % (AUTO) 8.1 % (3-13); RED BLOOD COUNT 3.06 10^6/uL (3.72-5.28); RED CELL DISTRIBUTION WIDTH 13.2 % (11.5-14.0); SEGMENTED NEUTROPHILS % (AUTO) 70.3 % (42-78); WHITE BLOOD COUNT 9.5 10^3/uL (4.0-10.5)
[2017-03-26 22:23] LABS: APPEARANCE,URINE CLEAR; BILIRUBIN,URINE NEGATIVE (NEGATIVE); GLUCOSE, URINE NEGATIVE (NEGATIVE); KETONES,URINE NEGATIVE (NEGATIVE); LEUKOCYTE ESTERASE,URINE SMALL (NEGATIVE); NITRITE,URINE NEGATIVE (NEGATIVE); PROTEIN,URINE NEGATIVE (NEGATIVE); URINE SPECIFIC GRAVITY 1.003; UROBILINOGEN,URINE NEGATIVE mg/dL (<2.0)
[2017-03-26 22:26] LABS: ALANINE AMINOTRANSFERASE 36 U/L (9-52); ALBUMIN 3.3 g/dL (3.5-5.0); ALKALINE PHOSPHATASE 113 U/L (38-126); ANION GAP 9 (5-19); ASPARTATE AMINO TRANSFERASE 27 U/L (14-36); BILIRUBIN,DIRECT 0.4 mg/dL (0.0-0.4); BILIRUBIN,TOTAL 0.4 mg/dL (0.2-1.3); BLOOD UREA NITROGEN 11 mg/dL (7-20); CALCIUM 9.2 mg/dL (8.4-10.2); CARBON DIOXIDE 27 mmol/L (22-30); CHLORIDE 104 mmol/L (98-107); CREATININE RESULT 0.86 mg/dL (0.52-1.25); GLUCOSE 90 mg/dL (75-110); POTASSIUM 4.2 mmol/L (3.6-5.0); SODIUM 140.1 mmol/L (137-145)
[2017-03-26 22:54] VITALS: BP 147/106
== END 2017-03-26 22:59 | disposition home or self-care (01) ==
LOC: ER 21:45
DX: O16.5 Unspecified maternal hypertension, complicating the puerperium (principal); O14.95 Unspecified pre-eclampsia, complicating the puerperium; R68.83 Chills (without fever); Z98.890 Other specified postprocedural states
CPT/HCPCS: 36415; 80053; 81001; 85025; 99284

== ENCOUNTER 2017-04-16 14:08 | Emergency (ER) | payer MEDICAID ==
--- NOTE | 2017-04-16 15:03 | ER Document Report ---
ED Medical Screen (RME) - General Chief Complaint: Post Surgical Pain Stated Complaint: PAIN,DRAINAGE AT INCISION SITE Time Seen by Provider: 04/16/17 14:58 Notes: 36-year-old female patient has on 03/24/2017. She had preeclampsia and is on labetalol 100 mg twice daily for high blood pressure. She reports her previous deliveries were like this and she was on blood pressure medicine for about 6 months after the deliveries. She was seen in the office 2 days ago, and her blood pressure was high but they elected not to increase her medication. By history it is higher today than it was then. She reports she noted yesterday some swelling to the wound area and this morning it was draining or oozing yellow liquid. I have greeted and performed a rapid initial assessment of this patient. A comprehensive ED assessment and evaluation of the patient, analysis of test results and completion of the medical decision making process will be conducted by additional ED providers. TRAVEL OUTSIDE OF THE [place] IN LAST 30 DAYS: No - Related Data Allergies/Adverse Reactions: No Known Allergies Allergy (Verified 04/16/17 14:09) Home Medications: Current Home Medications Labetalol HCl 1 tab PO BID 04/16/17 [History] Ranitidine HCl 1 tab PO DAILY 04/16/17 [History] Past Medical History - Past Medical History Cardiac Medical History: Reports: Hx Heart Murmur Renal/ Medical History: Denies: Hx Peritoneal Dialysis - Immunizations History of Influenza Vaccine for 01/2017 - 06/2017 Season: Refused Physical Exam - Vital signs Vitals: Temp Pulse Resp BP Pulse Ox 98.2 F 73 16 176/110 H 99 04/16/17 14:57 04/16/17 14:57 04/16/17 14:57 04/16/17 14:57 04/16/17 14:57 Course - Vital Signs Vital signs: Temp Pulse Resp BP Pulse Ox 98.2 F 75 16 171/106 H 99 04/16/17 14:57 04/16/17 14:58 04/16/17 14:58 04/16/17 14:58 04/16/17 14:58
[2017-04-16 15:55] LABS: ABSOLUTE BASOPHILS # (AUTO) 0.1 10^3/uL (0.0-0.2); ABSOLUTE EOSINOPHILS # (AUTO) 0.2 10^3/uL (0.0-0.6); ABSOLUTE MONOCYTES (AUTO) 0.6 10^3/uL (0.1-1.4); ABSOLUTE NEUT (AUTO) 6.2 10^3/uL (1.7-8.2); BASOPHILS % (AUTO) 0.6 % (0-2); EOSINOPHILS % (AUTO) 2.7 % (0-6); HEMATOCRIT 36.5 % (36.0-47.0); HEMOGLOBIN 12.3 g/dL (12.0-15.5); LYMPHOCYTES % (AUTO) 22.3 % (13-45); MEAN CORPUSCULAR HEMOGLOBIN 31.9 pg (27.0-33.4); MEAN CORPUSCULAR HGB CONC 33.7 g/dL (32.0-36.0); MEAN CORPUSCULAR VOLUME 95 fl (80-97); MONOCYTES % (AUTO) 6.5 % (3-13); PLATELET COUNT 407 10^3/uL (150-450); RED BLOOD COUNT 3.86 10^6/uL (3.72-5.28); RED CELL DISTRIBUTION WIDTH 12.9 % (11.5-14.0); SEGMENTED NEUTROPHILS % (AUTO) 67.9 % (42-78); TOTAL CELLS COUNTED % (AUTO) 100 %; WHITE BLOOD COUNT 9.2 10^3/uL (4.0-10.5)
[2017-04-16 16:10] LABS: ALANINE AMINOTRANSFERASE 30 U/L (9-52); ALBUMIN 4.1 g/dL (3.5-5.0); ALKALINE PHOSPHATASE 77 U/L (38-126); ANION GAP 12 (5-19); ASPARTATE AMINO TRANSFERASE 21 U/L (14-36); BILIRUBIN,DIRECT 0.2 mg/dL (0.0-0.4); BILIRUBIN,TOTAL 0.3 mg/dL (0.2-1.3); BLOOD UREA NITROGEN 20 mg/dL (7-20); CALCIUM 9.6 mg/dL (8.4-10.2); CARBON DIOXIDE 23 mmol/L (22-30); CHLORIDE 107 mmol/L (98-107); GLUCOSE 84 mg/dL (75-110); POTASSIUM 4.2 mmol/L (3.6-5.0); TOTAL PROTEIN 6.8 g/dL (6.3-8.2)
--- NOTE | 2017-04-16 17:27 | ER Document Report ---
ED General - General Chief Complaint: Post Surgical Pain Stated Complaint: PAIN,DRAINAGE AT INCISION SITE Time Seen by Provider: 04/16/17 14:58 Mode of Arrival: Ambulatory Information source: Patient Notes: 36-year-old female status post earlier in the month for preeclampsia, on labetalol currently, presents to the emergency room with complaints of discharge from site, some lower abdominal and continued elevated blood pressure. She recently increased her labetalol to 200 twice daily. TRAVEL OUTSIDE OF THE [place] IN LAST 30 DAYS: No - HPI Onset: Last week Onset/Duration: Gradual Quality of pain: Achy Severity: None Pain Level: Denies Associated symptoms: denies: Chest pain, Fever, Shortness of breath Exacerbated by: Denies Relieved by: Denies Similar symptoms previously: Yes Recently seen / treated by doctor: Yes - Related Data Allergies/Adverse Reactions: No Known Allergies Allergy (Verified 04/16/17 14:09) Home Medications: Current Home Medications Bupropion HCl [Bupropion Xl] 150 mg PO DAILY 04/16/17 [History] Cephalexin [Cephalexin 500 MG Capsule] 500 mg PO Q6 MDD FILLED 04/11 FOR 7DS [History] Ferrous Sulfate [Feosol 325 mg Tablet] 325 mg PO BID 04/16/17 [History] Labetalol HCl 200 mg PO Q12 04/16/17 [History] Pnv72/Iron,Gluc/Folic/Dss/Dha [Citranatal 90 Dha Combo Pack] 1 each PO DAILY [History] Ranitidine HCl 150 mg PO BID 04/16/17 [History] Past Medical History - General Information source: Patient - Social History Smoking Status: Current Every Day Smoker Cigarette use (# per day): Yes Chew tobacco use (# tins/day): No - Half pack per day Frequency of alcohol use: None Drug Abuse: None Lives with: Family Family History: Reviewed & Not Pertinent Patient has suicidal ideation: No Patient has homicidal ideation: No - Past Medical History Cardiac Medical History: Reports: Hx Heart Murmur Renal/ Medical History: Denies: Hx Peritoneal Dialysis Past Surgical History: Reports: Hx Section Review of Systems - Review of Systems Constitutional: denies: Chills, Fever EENT: No symptoms reported Cardiovascular: No symptoms reported Respiratory: No symptoms reported Gastrointestinal: See HPI Genitourinary: No symptoms reported Female Genitourinary: No symptoms reported Musculoskeletal: See HPI Skin: No symptoms reported Hematologic/Lymphatic: No symptoms reported Neurological/Psychological: No symptoms reported Physical Exam - Vital signs Vitals: Temp Pulse Resp BP Pulse Ox 98.2 F 73 16 176/110 H 99 04/16/17 14:57 04/16/17 14:57 04/16/17 14:57 04/16/17 14:57 04/16/17 14:57 Notes: Physical exam: GENERAL: 36-year-old female, alert and oriented 3, no acute distress HEAD: Atraumatic, normocephalic. EYES: Pupils equal round and reactive to light, extraocular movements intact, sclera anicteric, conjunctiva are normal. ENT: TMs normal, nares patent, oropharynx clear without exudates. Moist mucous membranes. NECK: Normal range of motion, supple without obvious mass or JVD. LUNGS: Breath sounds clear to auscultation bilaterally and equal. No wheezes rales or rhonchi. HEART: Regular rate and rhythm without murmurs, rubs or gallops. ABDOMEN: Soft, normoactive bowel sounds. No tenderness to palpation. No guarding, no rebound. No masses appreciated. C section site looks quite good. There is no erythema, discharge. Wound site is intact. There is no palpable seromas. EXTREMITIES: Normal range of motion, no pitting or edema. No clubbing or cyanosis. NEUROLOGICAL: Cranial nerves II through XII grossly intact. Normal speech, moving all extremities. PSYCH: Normal mood, normal affect. SKIN: Warm, Dry, normal turgor, no rashes or lesions noted. Course - Re-evaluation Re-evalutation: 04/16/17 19:36 Note: I had a long conversation with the patient about her blood pressure. The plan would be to increase the blood pressure to 200 mg twice daily. She did this by herself 2 days ago. I would keep her at this dose for another day or 2 before increasing. She does have an appointment with the stewardess supervisor on the fifth. - Vital Signs Vital signs: Temp Pulse Resp BP Pulse Ox 97.8 F 77 18 162/112 H 97 04/16/17 17:29 04/16/17 17:29 04/16/17 17:29 04/16/17 17:29 04/16/17 17:29 - Laboratory Result Diagrams: 04/16/17 15:35 04/16/17 15:35 Discharge - Discharge Clinical Impression: Hypertension, site drainage Condition: Stable Disposition: HOME, SELF-CARE Additional Instructions: As we discussed, the site looks quite good. There is no evidence of infection. We will send off a urine culture to make sure the Keflex is covering the urine infection. Your white blood count, and kidney tests look very good today. The plan is to continue the labetalol at 200 mg twice daily. Follow-up with the OB doctor on April 21 is planned. Return to the emergency room for worsening pain, fever (temperature greater than 100.4), any concerns that the site is getting infected or worsening abdominal pain. Prescriptions: Labetalol HCl [Normodyne 200 mg Tablet] 200 mg PO Q12 #60 tablet Referrals: MERA WILSON MD [Primary Care Provider] - Follow up as needed
[2017-04-16 18:06] VITALS: BP 162/112
== END 2017-04-16 17:30 | disposition home or self-care (01) ==
LOC: ER 14:08
DX: G89.18 Other acute postprocedural pain (principal); I10 Essential (primary) hypertension; Z79.899 Other long term (current) drug therapy; F17.200 Nicotine dependence, unspecified, uncomplicated
CPT/HCPCS: 36415; 80053; 83735; 85025; 87086; 99283

== ENCOUNTER 2018-11-26 09:04 | Emergency (ER) | payer SELFPAY ==
[2018-11-26] MEDS ORDERED: LABETALOL HCL INJ 20 MG/4 ML DISP.SYRIN IV ONE (10:48)
[2018-11-26] MEDS ORDERED: LABETALOL HCL 200 MG TABLET PO ONE (10:48)
[2018-11-26 10:58] LABS: ABSOLUTE EOSINOPHILS # (AUTO) 0.1 10^3/uL (0.0-0.6); ABSOLUTE MONOCYTES (AUTO) 0.6 10^3/uL (0.1-1.4); ABSOLUTE NEUT (AUTO) 4.8 10^3/uL (1.7-8.2); BASOPHILS % (AUTO) 0.6 % (0-2); EOSINOPHILS % (AUTO) 1.2 % (0-6); HEMATOCRIT 38.6 % (36.0-47.0); HEMOGLOBIN 13.4 g/dL (12.0-15.5); LYMPHOCYTES % (AUTO) 27.2 % (13-45); MEAN CORPUSCULAR HGB CONC 34.8 g/dL (32.0-36.0); MEAN CORPUSCULAR VOLUME 92 fl (80-97); MONOCYTES % (AUTO) 7.5 % (3-13); PLATELET COUNT 241 10^3/uL (150-450); RED CELL DISTRIBUTION WIDTH 12.3 % (11.5-14.0); SEGMENTED NEUTROPHILS % (AUTO) 63.5 % (42-78); TOTAL CELLS COUNTED % (AUTO) 100 %; WHITE BLOOD COUNT 7.5 10^3/uL (4.0-10.5)
--- NOTE | 2018-11-26 11:02 | ER Document Report ---
ED Blood Pressure Problem - General Chief Complaint: High Blood Pressure Stated Complaint: HEADACHE Time Seen by Provider: 11/26/18 10:32 Primary Care Provider: MERA WILSON MD [ACTIVE STAFF] - Follow up as needed Notes: 38-year-old female with a lifelong history of hypertension presents to the ER complaining of headache and high blood pressure. The patient ran out of blood pressure medicine the first part of 2017 and has not gone back stated the last couple days she is been having a lot of headaches denies blurred vision denies extremity numbness tingling weakness denies chest pain denies shortness of jason ath. The patient states she was on labetalol. She states she is allergic to an unknown blood pressure medicine and cannot tell me which one. States labetalol works best for her. The patient otherwise is doing well she is very anxious TRAVEL OUTSIDE OF THE [place] IN LAST 30 DAYS: No - Related Data Allergies/Adverse Reactions: No Known Allergies Allergy (Verified 04/16/17 14:09) Past Medical History - Social History Smoking Status: Current Every Day Smoker Chew tobacco use (# tins/day): No Drug Abuse: None Family History: Reviewed & Not Pertinent Patient has suicidal ideation: No Patient has homicidal ideation: No - Past Medical History Cardiac Medical History: Reports: Hx Heart Murmur Renal/ Medical History: Denies: Hx Peritoneal Dialysis Past Surgical History: Reports: Hx Section Review of Systems - Review of Systems Constitutional: denies: Chills, Fever EENT: denies: Blurred vision Respiratory: denies: Short of breath Gastrointestinal: denies: Abdominal pain, Nausea, Vomiting Genitourinary: denies: Dysuria, Flank pain, Hematuria Musculoskeletal: denies: Back pain Neurological/Psychological: Anxiety, Headaches -: Yes All other systems reviewed and negative Physical Exam - Vital signs Vitals: Temp Pulse Resp BP Pulse Ox 98.2 F 96 16 187/130 H 99 11/26/18 09:19 11/26/18 09:19 11/26/18 09:19 11/26/18 09:19 11/26/18 09:19 - Notes Notes: GENERAL_APPEARANCE: well_nourished, alert, cooperative VITALS: reviewed, see vital signs table. HEAD: no_swelling\tenderness on the head. EYES: PERRL, EOMI, conjunctiva_clear. NOSE: no_nasal_discharge. MOUTH: (-)decreased moisture. THROAT: no_tonsilar_inflammation, no_airway_obstruction. no_lymphadenopathy NECK: supple, no_neck_tenderness, (-)thyromegaly. BACK: no_back_tenderness. CHEST_WALL: no_chest_tenderness. LUNGS: no_wheezing, no_rales, no_rhonchi, (-)accessory muscle use, good air ex change bilateral. HEART: normal_rate, normal_rhythm, normal_S1, normal_S2, (-)S3, (-)S4, no_murmur, no_rub. ABDOMEN: normal_BS, soft, no_abd_tenderness, (-)guarding, (-)rebound, no_organomegaly, no_abd_masses. EXTREMITIES: good pulses in all_extremities, no_swelling\tenderness in the extremities, no_edema. SKIN: warm, dry, good_color, no_rash. MENTAL_STATUS: speech_clear, oriented_X_3, anxious tearful_affect, responds_appropriately to questions. NEURO: Neg Motor or Sensory Deficits on exam, CN 2-12 intact, DTR 2+ symmetric x 4, No cerbellar signs Course - Re-evaluation Re-evalutation: 11/26/18 11:00 30-year-old female presents with elevated blood pressure and headache she has no other neuro deficits no blurred vision no extremity numbness tingling weakness no motor weakness. Patient is usually on labetalol but has run out of that. I tried to figure out what other blood pressure medicine she was on but she could not help me. She stated that she is allergic to a certain blood pressure medicine I put her in the hospital. I think because of not knowing exactly what blood pressure medicine she was allergic to I we will give her labetalol here and will place her on at home she is to get a hold of her family doctor she had in [facility] and try to figure out what it was that caused this reaction so that she can be placed on blood pressure medicine appropriate labetalol in the future. 11/26/18 13:07 Blood pressures come down nicely. She is still not completely normal however she feels better. I do not want to lower the blood pressure precipitously all at one time. We will place her on labetalol. And spoke with her about adjusting it up. She will follow-up with her family doctor for further adjustments and keep a blood pressure diary. - Vital Signs Vital signs: Temp Pulse Resp BP Pulse Ox 98.2 F 96 19 145/102 H 98 11/26/18 09:19 11/26/18 09:19 11/26/18 12:30 11/26/18 12:30 11/26/18 12:30 - Laboratory Result Diagrams: 11/26/18 10:42 11/26/18 10:42 - Diagnostic Test Radiology reviewed: Reports reviewed Radiology results interpreted by me: 11/26/18 13:07 Chest X-Ray 11/26/18 10:48 IMPRESSION: NO ACUTE RADIOGRAPHIC FINDING IN THE CHEST. - EKG Interpretation by Tn EKG shows normal: Sinus rhythm Rhythm: NSR Discharge - Discharge Clinical Impression: Hypertension Qualifiers: Hypertension type: essential hypertension Qualified Code(s): I10 - Essential (primary) hypertension Condition: Good Disposition: HOME, SELF-CARE Instructions: High Blood Pressure, Requiring Treatment ([facility]) Additional Instructions: Please follow-up with your doctor. Keep a blood pressure diary of your blood pressures. The usual dosing for labetalol is 100 mg twice a day and it is usually adjusted up by 100 mg twice a day to a max of 300 mg twice a day. Any additional issues return to the ER Prescriptions: Labetalol HCl 100 mg PO BID #180 tablet Referrals: MERA WILSON MD [ACTIVE STAFF] - Follow up as needed
[2018-11-26 11:22] LABS: ANION GAP 10 (5-19); BLOOD UREA NITROGEN 12 mg/dL (7-20); CALCIUM 9.2 mg/dL (8.4-10.2); CARBON DIOXIDE 24 mmol/L (22-30); CHLORIDE 106 mmol/L (98-107); GLUCOSE 85 mg/dL (75-110); POTASSIUM 3.8 mmol/L (3.6-5.0)
--- NOTE | 2018-11-26 11:26 | RADIOLOGY REPORT (SQ) ---
EXAM DESCRIPTION: CHEST SINGLE VIEW COMPLETED DATE/TIME: 11/26/2018 11:17 am REASON FOR STUDY: htn COMPARISON: None. EXAM PARAMETERS: NUMBER OF VIEWS: One view. TECHNIQUE: Single frontal radiographic view of the chest acquired. RADIATION DOSE: NA LIMITATIONS: None. FINDINGS: LUNGS AND PLEURA: No opacities, masses or pneumothorax. No pleural effusion. MEDIASTINUM AND HILAR STRUCTURES: No masses. Contour normal. HEART AND VASCULAR STRUCTURES: Heart normal in size. Normal vasculature. BONES: No acute findings. HARDWARE: None in the chest. OTHER: No other significant finding. IMPRESSION: NO ACUTE RADIOGRAPHIC FINDING IN THE CHEST. TECHNICAL DOCUMENTATION: JOB ID: [id number] [employer]- All Rights Reserved Reading location - IP/workstation name: [email or web address]
[2018-11-26] MEDS ORDERED: ACETAMINOPHEN 325 MG TABLET PO ONE (12:37)
[2018-11-26 14:02] VITALS: BP 141/103
--- NOTE | 2018-11-27 09:41 | EKG REPORT ---
SEVERITY:- ABNORMAL ECG - SINUS RHYTHM PROBABLE LEFT ATRIAL ABNORMALITY PROBABLE LEFT VENTRICULAR HYPERTROPHY : Confirmed by: Venice Luong 27-Nov-2018 09:40:08
== END 2018-11-26 13:30 | disposition home or self-care (01) ==
LOC: ER 09:04
DX: I10 Essential (primary) hypertension (principal); R51 Headache; Z79.899 Other long term (current) drug therapy; F41.9 Anxiety disorder, unspecified; F17.200 Nicotine dependence, unspecified, uncomplicated
CPT/HCPCS: 93005; 36415; 85025; 80048; 71045; 93010; J3490; 96374; 99284

== ENCOUNTER 2018-11-27 11:33 | Emergency (ER) | payer SELFPAY ==
--- NOTE | 2018-11-27 13:39 | ER Document Report ---
ED Medical Screen (RME) - General Chief Complaint: High Blood Pressure Stated Complaint: BLURRED VISION Time Seen by Provider: 11/27/18 13:38 Notes: HPI: 38-year-old female history of hypertension here for multiple complaints to include headache for the last several days, elevated blood pressure, right shoulder pain, left arm numbness, and intermittent blurry vision since yesterday. She was seen and evaluated here yesterday and had an unremarkable work-up and was discharged on labetalol as this was one of the blood pressure medications she was taking in the past however she has not been compliant with this in a while secondary to no insurance. She does have a history of a questionable possible aneurysm however this is not confirmed as we have no medical records to review for her as she had previously gotten all of her care at [facility] in [place]. She is not sure if she is having a reaction to the the labatolol or her symptoms are just because her blood pressure still elevated. She states she has been compliant with her labetalol. denies mi or cva hx. No fall or trauma. She states usually she does not have any numbness or vision changes with her headaches. She has not had a recent head CT. No fever. No blood thinners; however, she did take Motrin for headache earlier today. No other complaints at this time. ROS neg to include 10 systems, unless mentioned in the hpi. PE:>>>> PHYSICAL_EXAM: GENERAL_APPEARANCE: well_nourished, alert, cooperative, no_acute_distress, no_obvious_discomfort. pleasant, thin somewhat anxious white female who appears slightly older than stated age, smiling, speaking in full sentences, in no sign of pain or resp distress, VITALS: reviewed, see vital signs table. HEAD: no_swelling\tenderness on the head. normocephalic. atraumatic. no tirado signs. no raccoons eyes. EYES: PERRL, EOMI, conjunctiva_clear. NOSE: no_nasal_discharge. MOUTH: (-)decreased moisture. THROAT: no_tonsilar_inflammation, no_airway_obstruction. no_lymphadenopathy NECK: supple, no_neck_tenderness, full rom. full strength. no meningeal signs. BACK: no_back_tenderness. CHEST_WALL: no_chest_tenderness. no overlying skin changes LUNGS: no_wheezing, ctab (-)accessory muscle use, good air exchange bilateral. HEART: normal_rate, normal_rhythm, EXTREMITIES: strength 5/5 in all_extremities, good pulses in all_extremities, no_swelling\tenderness in the extremities, no_edema. full rom. normal gait. good pulses. brisk cap refill. 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 NEURO: motor and sensation intact, SKIN: warm, dry, good_color, no_rash. MENTAL_STATUS: speech_clear, oriented_X_3, normal_affect, resp onds_appropriately to questions. MDM: I have ordered labs and initial work-up and patient will be transferred to the main ER for further work-up. I have greeted and performed a rapid initial assessment of this patient. A comprehensive ED assessment and evaluation of the patient, analysis of test results and completion of medical decision making process will be conducted by an additional ED providers. Documentation achieved through voice recording which my lead to some occasional accidental typographical errors. Extensive efforts have been made to proof read documentation to make sure these are the least as possible Temp Pulse Resp BP Pulse Ox 11/27/18 14:08 98.3 F 72 16 150/111 H 100 11/27/18 12:03 98.3 F 76 16 166/97 H 100 Category Date Time Status Continuous Cardiac Monitoring (ED) CONTINUOUS Care 11/27/18 13:48 Ordered EKG Documentation STAT Care 11/27/18 13:48 Ordered EKG Documentation STAT Care 11/27/18 13:48 Ordered Orthostatic Vital Sign (ED) NOW Care 11/27/18 13:48 Ordered Visual Acuity (ED) NOW Care 11/27/18 13:48 Ordered CHEST SINGLE VIEW [RAD] Stat Exams 11/27/18 13:[address] HEAD WITHOUT [CT] Stat Exams 11/27/18 13:47 Ordered CBC WITH DIFF [HEME] Stat Lab 11/27/18 13:47 Ordered COMPREHENSIVE METABOLIC PANEL [CHEM] Stat Lab 11/27/18 13:47 Ordered CREATINE KINASE MB [CHEM] Stat Lab 11/27/18 13:47 Ordered CREATINE KINASE [CHEM] Stat Lab 11/27/18 13:47 Ordered HCG QUALITATIVE, URINE [URIN] Stat Lab 11/27/18 13:47 Uncollected MAGNESIUM [CHEM] Stat Lab 11/27/18 13:48 Ordered PARTIAL THROMBOPLASTIN TIME [COAG] Stat Lab 11/27/18 13:47 Ordered PROTHROMBIN TIME/INR [COAG] Stat Lab 11/27/18 13:47 Ordered T4 [FREE T4 (FREE THYROXINE)] [CHEM] Stat Lab 11/27/18 13:48 Ordered THYROID STIMULATING HORMONE [CHEM] Stat Lab 11/27/18 13:48 Ordered TROPONIN I [CHEM] Stat Lab 11/27/18 13:47 Ordered URINALYSIS [URIN] Stat Lab 11/27/18 13:47 Uncollected URINE DRUG SCREEN [CHEM] Stat Lab 11/27/18 13:47 Uncollected EKG ER ONLY [ER] Stat Oth 11/27/18 Ordered TRAVEL OUTSIDE OF THE [place] IN LAST 30 DAYS: No - Related Data Allergies/Adverse Reactions: No Known Allergies Allergy (Verified 11/27/18 11:37) Past Medical History - Social History Chew tobacco use (# tins/day): No - Past Medical History Cardiac Medical History: Reports: Hx Hypertension, Hx Heart Murmur Renal/ Medical History: Denies: Hx Peritoneal Dialysis Past Surgical History: Reports: Hx Section - Immunizations History of Influenza Vaccine for 01/2017 - 06/2017 Season: Refused Physical Exam - Vital signs Vitals: Temp Pulse Resp BP Pulse Ox 98.3 F 76 16 166/97 H 100 11/27/18 12:03 11/27/18 12:03 11/27/18 12:03 11/27/18 12:03 11/27/18 12:03 Course - Vital Signs Vital signs: Temp Pulse Resp BP Pulse Ox 98.3 F 76 16 166/97 H 100 11/27/18 12:03 11/27/18 12:03 11/27/18 12:03 11/27/18 12:03 11/27/18 12:03
--- NOTE | 2018-11-27 14:29 | RADIOLOGY REPORT (SQ) ---
EXAM DESCRIPTION: CT HEAD WITHOUT COMPLETED DATE/TIME: 11/27/2018 2:19 pm REASON FOR STUDY: headache, left hand numbness, blurry vision COMPARISON: None. TECHNIQUE: Axial images acquired through the brain without intravenous contrast. Images reviewed wi th bone, brain and subdural windows. Additional sagittal and coronal reconstructions were generated. Images stored on PACS. All CT scanners at this facility use dose modulation, iterative reconstruction, and/or weight based d osing when appropriate to reduce radiation dose to as low as reasonably achievable (ALARA). [facility]: Dose Right [facility]: CareDose [facility]: Dose Right [facility]: Teradose 4D [facility]: [place] Saint RADIATION DOSE: CT Rad equipment meets quality standard of care and radiation dose reduction techniq ues were employed. CTDIvol: 53.2 mGy. DLP: 1044 mGy-cm. mGy. LIMITATIONS: None. FINDINGS: VENTRICLES: Normal size and contour. CEREBRUM: No masses. No hemorrhage. No midline shift. No evidence for acute infarction. Normal gra y/white matter differentiation. No areas of low density in the white matter. CEREBELLUM: No masses. No hemorrhage. No alteration of density. No evidence for acute infarction. EXTRAAXIAL SPACES: No fluid collections. No masses. ORBITS AND GLOBE: No intra- or extraconal masses. Normal contour of globe without masses. CALVARIUM: No fracture. PARANASAL SINUSES: No fluid or mucosal thickening. SOFT TISSUES: No mass or hematoma. OTHER: No other significant finding. IMPRESSION: NO ACUTE INTRACRANIAL IMAGING FINDINGS. EVIDENCE OF ACUTE STROKE: NO. COMMENT: Quality ID # [id number]: Final reports with documentation of one or more dose reduction techniques (e.g., Automated exposure control, adjustment of the mA and/or kV according to patient size, use of iterative reconstruction technique) TECHNICAL DOCUMENTATION: JOB ID: [id number] [employer]- All Rights Reserved Reading location - IP/workstation name: [email or web address]
[2018-11-27 15:02] LABS: APPEARANCE,URINE CLEAR; BILIRUBIN,URINE NEGATIVE (NEGATIVE); COLOR,URINE STRAW; GLUCOSE, URINE NEGATIVE (NEGATIVE); KETONES,URINE NEGATIVE (NEGATIVE); LEUKOCYTE ESTERASE,URINE TRACE (NEGATIVE); NITRITE,URINE NEGATIVE (NEGATIVE); PROTEIN,URINE NEGATIVE (NEGATIVE); URINE SPECIFIC GRAVITY 1.003; UROBILINOGEN,URINE NEGATIVE mg/dL (<2.0)
[2018-11-27 15:15] LABS: URINE AMPHETAMINES SCREEN NEGATIVE; URINE BARBITURATES SCREEN NEGATIVE; URINE BENZODIAZEPINES SCREEN NEGATIVE; URINE COCAINE SCREEN NEGATIVE; URINE MARIJUANA (THC) SCREEN NEGATIVE; URINE METHADONE SCREEN NEGATIVE; URINE PHENCYCLIDINE SCREEN NEGATIVE
[2018-11-27 15:21] LABS: INTERNATIONAL RATION (INR) 1.07; PARTIAL THROMBOPLASTIN TIME 29.1 SEC (23.5-35.8); PROTHROMBIN TIME 13.9 SEC (11.4-15.4)
--- NOTE | 2018-11-27 15:25 | ER Document Report ---
ED General - General Chief Complaint: High Blood Pressure Stated Complaint: BLURRED VISION Time Seen by Provider: 11/27/18 13:38 Primary Care Provider: KEL BARROS MD [ACTIVE STAFF] - Follow up as needed CLEM BARRAGAN MD [ACTIVE STAFF] - Follow up as needed ARELI OBANDO MD [ACTIVE STAFF] - Follow up as needed Mode of Arrival: Ambulatory - so give me the day before I make a patients in her room for several Information source: Patient TRAVEL OUTSIDE OF THE [place] IN LAST 30 DAYS: No - HPI Notes: 30-year-old female presents to the ED for evaluation of hypertensive urgency with headache and blood pressure of 160/118, patient was seen in the ED yesterday for hypertensive urgency, discharged on labetalol 200 mg twice daily. Patient states that she was unable to get her referral course of labetalol, received 7 pills from a pharmacy, states she did take 200 mg labetalol today. Patient has not followed up with her primary care because she just today received Medicaid again to be seen by her primary care. So she does have health insurance now. Denies any illicit drug use denies fevers, chills, chest p ain,palpitations, shortness of breath, dyspnea, nausea, vomiting, diarrhea, abdominal pain, hematuria,blurred vision, double vision, loss of vision, speech changes, LH, dizziness, syncope, wheezing, ST, URI, neck pain, weakness, bowel or bladder dysfunction, saddle anesthesia, numbness or tingling in bilateral upper or lower extremities equally, muscle paralysis, weakness in bilateral upper or lower extremities equally or rash. - Related Data Allergies/Adverse Reactions: No Known Allergies Allergy (Verified 11/27/18 11:37) Past Medical History - General Information source: Patient - Social History Smoking Status: Current Every Day Smoker Chew tobacco use (# tins/day): No Family History: Reviewed & Not Pertinent Patient has suicidal ideation: No Patient has homicidal ideation: No - Past Medical History Cardiac Medical History: Reports: Hx Hypertension, Hx Heart Murmur Renal/ Medical History: Denies: Hx Peritoneal Dialysis Past Surgical History: Reports: Hx Section Review of Systems - Review of Systems Constitutional: No symptoms reported EENT: No symptoms reported Cardiovascular: No symptoms reported Respiratory: No symptoms reported Gastrointestinal: No symptoms reported Genitourinary: No symptoms reported Female Genitourinary: No symptoms reported Musculoskeletal: No symptoms reported Skin: No symptoms reported Hematologic/Lymphatic: No symptoms reported Neurological/Psychological: See HPI - Discharge elevations from the back Physical Exam - Vital signs Vitals: Temp Pulse Resp BP Pulse Ox 98.3 F 76 16 166/97 H 100 11/27/18 12:03 11/27/18 12:03 11/27/18 12:03 11/27/18 12:03 11/27/18 12:03 - Notes Notes: PHYSICAL EXAMINATION: GENERAL: Well-appearing, well-nourished and in no acute distress. HEAD: Atraumatic, normocephalic. EYES: Pupils equal round and reactive to light, extraocular movements intact, conjunctiva are normal. ENT: Nares patent, oropharynx clear without exudates. Moist mucous membranes. NECK: Normal range of motion, supple without lymphadenopathy LUNGS: Breath sounds clear to auscultation bilaterally and equal. No wheezes rales or rhonchi. HEART: Regular rate and rhythm without murmurs ABDOMEN: Soft, nontender, nondistended abdomen. No guarding, no rebound. No masses appreciated. Female : deferred Musculoskeletal: Normal range of motion, no pitting or edema. No cyanosis. NEUROLOGICAL: Cranial nerves grossly intact. Normal speech, normal gait. Normal sensory, motor exams PSYCH: Normal mood, normal affect. SKIN: Warm, Dry, normal turgor, no rashes or lesions noted. Course - Re-evaluation Re-evalutation: 11/27/18 18:07 38-year-old female afebrile hypertensive, patient given 20 mg of labetalol IVP which brought her blood pressure down to 146/106, this is patient's likely baseline. CBC negative for leukocytosis or anemia, CMP negative for hepatic or renal dysfunction, slight decrease in her potassium of 3.4, given potassium chloride [address] head was negative for any acute findings EKG negative for acute STEMI, no ST segment changes, chest x-ray unremarkable. 2 sets troponin negative, patient was not complaining of any chest pain. 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 Patient was agreeable with this plan of care. Will start patient on 25mg hydrochlorothiazide along with labetalol 200mg. patient was agreeable with plan of care. After performing a Medical Screening Examination, I estimate there is LOW risk for ACUTE GLAUCOMA, TEMPORAL ARTERITIS, CP, MENINGITIS, INCRANIAL HEMORRHAGE, or ISCHEMIC STROKE thus I consider the discharge disposition reasonable. I have reevaluated this patient multiple times and no significant life threatening changes are noted. The patient and I have discussed the diagnosis and risks, and we agree with discharging home with close follow-up with the understanding that symptoms and presentations can change. We also discussed returning to the Emergency Department immediately if new or worsening symptoms occur. We have discussed the symptoms which are most concerning (e.g., changing or worsening symptoms, new numbness or weakness, vomiting, fever) that necessitate immediate return. - Vital Signs Vital signs: Temp Pulse Resp BP Pulse Ox 98.3 F 72 17 145/106 H 100 11/27/18 14:08 11/27/18 14:08 11/27/18 18:31 11/27/18 18:01 11/27/18 18:31 - Laboratory Result Diagrams: 11/27/18 15:47 11/27/18 15:04 Laboratory results interpreted by me: 11/27/18 11/27/18 11/27/18 14:35 15:04 15:47 Hgb 11.9 L Hct 35.1 L Potassium 3.4 L Chloride 109 H Calcium 8.3 L Total Protein 5.9 L Urine Blood SMALL H Ur Leukocyte Esterase TRACE H Discharge - Discharge Clinical Impression: Hypertension Qualifiers: Hypertension type: essential hypertension Qualified Code(s): I10 - Essential (primary) hypertension Condition: Stable Disposition: HOME, SELF-CARE Instructions: Beta Blockers ([facility]), High Blood Pressure ([facility]), High Blood Pressure, Requiring Treatment ([facility]) Additional Instructions: Start labetalol 100 mg twice a day. Start hydrochlorothiazide 25 mg daily. Follow-up with production truck driver as well as bean picker machine operator as well as a primary care provider for follow-up within the next 24 hours. Return immediately for any new or worsening symptoms. Follow up with primary care provider, call tomorrow to make followup appointment. Prescriptions: Hydrochlorothiazide [Hydrodiuril 25 mg Tablet] 25 mg PO DAILY #30 tablet Labetalol HCl 100 mg PO BID #60 tablet Referrals: ARELI OBANDO MD [ACTIVE STAFF] - Follow up as needed CLEM BARRAGAN MD [ACTIVE STAFF] - Follow up as needed KEL BARROS MD [ACTIVE STAFF] - Follow up as needed
[2018-11-27 15:38] LABS: ALBUMIN 3.7 g/dL (3.5-5.0); ALKALINE PHOSPHATASE 40 U/L (38-126); ANION GAP 7 (5-19); ASPARTATE AMINO TRANSFERASE 16 U/L (14-36); BILIRUBIN,DIRECT 0.3 mg/dL (0.0-0.4); BILIRUBIN,TOTAL 0.5 mg/dL (0.2-1.3); BLOOD UREA NITROGEN 11 mg/dL (7-20); CALCIUM 8.3 mg/dL (8.4-10.2); CARBON DIOXIDE 26 mmol/L (22-30); CHLORIDE 109 mmol/L (98-107); GLUCOSE 88 mg/dL (75-110); POTASSIUM 3.4 mmol/L (3.6-5.0); TOTAL PROTEIN 5.9 g/dL (6.3-8.2)
[2018-11-27 15:48] LABS: CREATINE KINASE MB < 0.22 ng/mL (<4.55); TROPONIN I < 0.012 ng/mL
[2018-11-27 15:54] LABS: FREE T4 (FREE THYROXINE) 1.16 ng/dL (0.78-2.19)
[2018-11-27 16:08] LABS: THYROID STIMULATING HORMONE 0.6 uIU/mL (0.47-4.68)
[2018-11-27 16:08] LABS: ABSOLUTE EOSINOPHILS # (AUTO) 0.1 10^3/uL (0.0-0.6); ABSOLUTE LYMPHOCYTES (AUTO) 2.3 10^3/uL (0.5-4.7); ABSOLUTE MONOCYTES (AUTO) 0.5 10^3/uL (0.1-1.4); ABSOLUTE NEUT (AUTO) 5.1 10^3/uL (1.7-8.2); BASOPHILS % (AUTO) 0.5 % (0-2); EOSINOPHILS % (AUTO) 1.1 % (0-6); HEMATOCRIT 35.1 % (36.0-47.0); HEMOGLOBIN 11.9 g/dL (12.0-15.5); LYMPHOCYTES % (AUTO) 28.8 % (13-45); MEAN CORPUSCULAR HEMOGLOBIN 31.3 pg (27.0-33.4); MEAN CORPUSCULAR HGB CONC 34.1 g/dL (32.0-36.0); MEAN CORPUSCULAR VOLUME 92 fl (80-97); MONOCYTES % (AUTO) 6.1 % (3-13); PLATELET COUNT 219 10^3/uL (150-450); RED BLOOD COUNT 3.82 10^6/uL (3.72-5.28); RED CELL DISTRIBUTION WIDTH 12.3 % (11.5-14.0); SEGMENTED NEUTROPHILS % (AUTO) 63.5 % (42-78); TOTAL CELLS COUNTED % (AUTO) 100 %
[2018-11-27] MEDS ORDERED: HYDRALAZINE HCL INJ/PF 20 MG/1 ML SDV IV ONE (16:15)
[2018-11-27] MEDS ORDERED: LABETALOL HCL INJ 20 MG/4 ML DISP.SYRIN IV ONE (16:16)
[2018-11-27] MEDS ORDERED: ACETAMINOPHEN 325 MG TABLET PO ONE (16:30)
[2018-11-27] MEDS ORDERED: POTASSIUM CHLORIDE 10 MEQ CAPSULE.ER PO ONE (16:57)
[2018-11-27 18:52] VITALS: BP 145/106
--- NOTE | 2018-11-28 14:38 | EKG REPORT ---
SEVERITY:- ABNORMAL ECG - SINUS RHYTHM PROBABLE LEFT ATRIAL ABNORMALITY PROBABLE LEFT VENTRICULAR HYPERTROPHY : Confirmed by: [place] Luong 28-Nov-2018 14:37:35
== END 2018-11-27 18:52 | disposition home or self-care (01) ==
LOC: ER 11:33
DX: I10 Essential (primary) hypertension (principal); R51 Headache; F17.200 Nicotine dependence, unspecified, uncomplicated
CPT/HCPCS: 93005; 36415; 87086; 84439; 82553; 82550; 83735; 84443; 85025; 85610; 85730; 81025; 87088; 80053; 81001; 84484; 80307; 70450; 93010; J3490; 87186; 96374; 99284